=== PATIENT | female | born 1990 ===

== ENCOUNTER 2017-04-18 16:09 | Emergency (ER) | payer MEDICAID ==
[2017-04-18 15:23] VITALS: BMI 19.1
[2017-04-18 16:40] LABS: RBC URINE 9 /hpf (0-3); TRANSITIONAL EPITHIAL < 1 /hpf (0-3); URINE BACTERIA RARE (<OCC); URINE BILIRUBIN NEGATIVE (NEGATIVE); URINE BLOOD 2+ (NEGATIVE); URINE COLOR Yellow (YELLOW); URINE GLUCOSE (UA) NORMAL (Normal); URINE KETONE 1+ mg/dL (NEGATIVE); URINE LEUKOCYTE ESTERASE TRACE Leu/uL (Negative); URINE PROTEIN NEGATIVE (NEGATIVE); WBC URINE 4 /hpf (0-5)
[2017-04-18 21:29] VITALS: PULSE 82; RESP 18; TEMP 98.7; O2SAT 99
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
== END 2017-04-18 17:27 | disposition home or self-care (01) ==
LOC: C.EROB 16:09
DX: O26.892 Other specified pregnancy related conditions, second trimester (principal); R10.9 Unspecified abdominal pain; Z3A.22 22 weeks gestation of pregnancy

== ENCOUNTER 2017-07-10 14:45 | Inpatient (IN) | payer MEDICAID, OTHER ==
[2017-07-10 15:47] LABS: BASO % 0.4 % (0.0-2.0); EOS # 0.1 K/uL (0.0-0.7); HEMOGLOBIN 10.4 g/dL (11.0-16.0); LYMPH # 1.2 K/uL (1.0-4.3); LYMPH % 19.4 % (20.0-40.0); MEAN CELL VOLUME 85.8 fL (81.0-99.0); MEAN CORPUSCULAR HEMOGLOBIN 29.7 pg (27.0-31.0); MEAN CORPUSCULAR HGB CONC 34.7 g/dL (33.0-37.0); MEAN PLATELET VOLUME 9.1 fL (7.2-11.7); MONO # 0.6 K/uL (0.0-0.8); MONO % 10.4 % (0.0-10.0); NEUT # 4.2 K/uL (1.8-7.0); NEUT % 68.8 % (50.0-75.0); RBC 3.5 Mil/uL (3.80-5.20); RED CELL DISTRIBUTION WIDTH 12.7 % (11.5-14.5); WHITE BLOOD COUNT 6.2 K/uL (4.8-10.8)
[2017-07-10 15:55] LABS: PROTHROMBIN TIME 11.1 SECONDS (9.7-12.2)
[2017-07-10 16:09] LABS: ALB/GLOB RATIO 1.1 (1.0-2.1); ALBUMIN 3.4 g/dL (3.5-5.0); ALT/SGPT 23 U/L (9-52); AST/SGOT 30 U/L (14-36); BLOOD UREA NITROGEN 9 mg/dL (7-17); CALCIUM 9.2 mg/dl (8.6-10.4); GFR AFRICAN-AMERICAN > 60; GFR NON-AFRICAN AMERICAN > 60; URIC ACID 3.8 mg/dL (2.2-7.5)
[2017-07-10 16:13] LABS: SQUAMOUS EPITHIAL 14 /hpf (0-5); URINE AMORPHOUS SEDIMENT RARE /ul (<OCC); URINE BACTERIA MOD (<OCC); URINE BILIRUBIN NEGATIVE (NEGATIVE); URINE BLOOD 1+ (NEGATIVE); URINE CLARITY Turbid (Clear); URINE COLOR Yellow (YELLOW); URINE GLUCOSE (UA) NORMAL (Normal); URINE LEUKOCYTE ESTERASE 2+ Leu/uL (Negative); URINE NITRATE NEGATIVE (NEGATIVE); URINE PROTEIN NEGATIVE (NEGATIVE); URINE UROBILINOGEN NORMAL mg/dL (0.2-1.0)
[2017-07-10] MEDS ORDERED: Lactated Ringer's 1,000 ML IV ONE (17:12)
[2017-07-10] MEDS ORDERED: Magnesium Sulfate 4 gm/100 ml 4 GM/100 ML BAG IVPB ONE ×2 (17:57)
[2017-07-10] MEDS: Magnesium Sulfate 20 gm 20 GM/500 ML BAG IV SCH (18:00)
[2017-07-10] MEDS: Lactated Ringer's 1,000 ML IV SCH (18:13)
[2017-07-10] MEDS ORDERED: Magnesium Sulfate 20 gm 20,000 MG/500 ML BAG IV ONE (18:30)
[2017-07-10] MEDS: Betamethasone Soluspan 30 mg/5mL Inj Susp IM SCH (18:34)
[2017-07-10] MEDS ORDERED: AMPicillin 2 GM in Sodium Chloride 100 ML IVPB ONE (18:42)
--- NOTE | 2017-07-10 19:16 | OBADHP ---
Datetime: 07/10/2017 15:39 IP Chief Complaint Other: Elevated BPs Admit Comment, IP Provider: Patient is a 27 year old at 34w5d LILIA 08/16/17 presents to L+D fr om Dr Becerra's office for elevated BPs. Patient states that she has been having a constant headache s teddy last night. This morning she wasnt feeling well and started to become dizzy. She went to the off ice today and BP was found to be 140s/60. Patient states that she ate eggs, cereal with milk this mor celia. Admits to also having blurry vision yesterday. Headache currently is 4/10 on pain scale. She di d not take anything for the headache. Denies fevers/chills, N/V, cp, palpitations, sob, RUQ/epigastri c pain, urinary symptoms. Issues: Denies OB Hx: 1. 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 Also reports B'H Ctx "all last night" pain. Cervical exam: 1-2 cm/30%/-3; mid position, medium consistency - Case D/W Dr. Braxton - IVFs; observe Addendum: 1730 hours - Patient states tightening slightly improved, still present. Cervical exam: 2cm/ 40%/ -3 to -2; more anterior and softer. Dr. Becerra made aware: patient for admission - celestone, magnesium sulphate and antibiotics. All of this was explained to patient - attention being given to advantage of steroid administration; com mon side effect of magnesium sulphate. Patient and FOB expressed an understanding and agree. All conc erns were addressed. Assessment: 27 y.o. , 34w 5d, threatened PTL, UTI, Breech presentation for steroids. Category 1 tracing. Clinically stable. Plan: 1) Admit 2) NPO 3) magnesium sulphate: loand and maintenance 4) Ampicillin 5) Celestone 6) Acosta to gravity 7) T_S 8) Re-examine as indicated - as per Dr. Becerra Abdomen - PN: Normal Lungs - PN: Normal Heart - PN: Normal HEENT - PN: Normal General - PN: Normal FHR - Baseline A Provider: 130 Contraction Comments Provider: occasional Comments, ACOG Physical Exam: VS: 118/69 Gen: AAOx3 Abd: Soft, gravid, no RUQ/epigastric tenderness Ext: No clubbing, cyanosis, edema Vital Signs Provider: Reviewed; Within Normal Limits IP Chief Complaint: Other NICHD Variability Prov Fetus A: Moderate 6-25bpm NICHD Accel Fetus A IP Provider: 15X15 FHR Category Provider Fetus A: Category I NICHD Decel Fetus A IP Provider: None EGA AdmitDate IP: 34.5 IP Adm Impression: , intrauterine IP Admit Plan: Admit to unit; Initiate labor protocol Datetime: 04/18/2017 17:20 Extremities - PN: Normal Pool Provider: Negative Dilatation, Provider: closed Effacement, Provider: thick Station, Provider: high
--- NOTE | 2017-07-10 20:53 | US ---
EXAM: US Biophysical Profile Without Non-Stress Testing CLINICAL HISTORY: 27 years old, female; Signs and symptoms; Other: Threatened ptl , 34wk5d; ; Additional info: Threatened ptl; 34w 5d. TECHNIQUE: Real-time ultrasound of the maternal pelvis for biophysical profile evaluation with image documentation. COMPARISON: There are no prior studies for comparison. FINDINGS: Biophysical profile: Fetus was evaluated for movement, breathing, tone and fluid volume. A score of 2/2 was given for each parameter IMPRESSION: Normal 8/8 biophysical profile EXAM: US Uterus, Limited EXAM DATE/TIME: 07/10/2017 6:43 PM CLINICAL HISTORY: 27 years old, female; Signs and symptoms; Other: Threatened ptl , 34wk5d; ; Additional info: Threatened ptl; 34w 5d. TECHNIQUE: Real-time ultrasound of the maternal uterus (limited) with image documentation. COMPARISON: There are no prior studies for comparison. FINDINGS: Gestation: There is a single living intrauterine gestation in breech presentation. Placenta is anterior. There is no previa. There is a heart rate of 132 beats per minute. Fluid: RUBIN measures 13.23 cm. measurements BPD: 8.44 cm, 34 weeks 0 days HC: 31.17 cm, 34 weeks 6 days AC: 29.69 cm, 33 weeks 5 days FL: 6.67 cm, 34 weeks 2 days Estimated weight is 2330 g By sonographic criteria, gestational age is 34 weeks 2 days Estimated date of delivery is 08/19/17 Cervix measures 2.17 m in length anatomy: There is a four-chamber heart and three-vessel cord. Fluid is seen in the stomach and bladder. Visualized portions of brain and spine appear intact. IMPRESSION: 34 week 2 day single breech fetus, estimated date of delivery 08/19/17
--- NOTE | 2017-07-10 22:03 | OBPN ---
Datetime: 07/10/2017 21:55 IP Progress Plan: Continue present management; Antibiotic therapy; Tocolysis Membranes, Provider: Intact Contraction Comments Provider: irregular FHR - Baseline A Provider: 125 IP Progress Note Comment: Patient received in bed: LDR#1. Reports feeling more "cramps"; pain scale 4/10. (+) AFM Cervical exam: as above. Bedside ultrasound: official report: Breech presentation, anterior placenta; EFW 2330 grams; cervi x 2.17 cm. BPS 8/8 (RUBIN 13.23 cm) Assessment: 27 y.o. P1, 34w 5d, threatened PTL; UTI on magnesium sulphate and ampicillin. Breech p resentation. S/P celestone 1 of 2 doses. No further cervical change. Category 1 tracing. Clinically stable. Plan: 1) Continue present management NICHD Accel Fetus A IP Provider: 15X15 FHR Category Provider Fetus A: Category I NICHD Variability Prov Fetus A: Moderate 6-25bpm Dilatation, Provider: 2 Effacement, Provider: 40 Station, Provider: -3 NICHD Decel Fetus A IP Provider: None Datetime: 07/10/2017 15:39 Vital Signs Provider: Reviewed; Within Normal Limits Datetime: 04/18/2017 17:20 Pool Provider: Negative
[2017-07-11] MEDS: AMPicillin 1 GM in Sodium Chloride 0.9% 100 ML IVPB SCH ×4 (01:03→18:23)
[2017-07-11] MEDS ORDERED: Magnesium Sulfate 20 gm 20,000 MG/500 ML BAG IV ONE (05:37)
[2017-07-11] MEDS: Magnesium Sulfate 20 gm 20 GM/500 ML BAG IV SCH (06:58)
[2017-07-11] MEDS: Lactated Ringer's 1,000 ML IV SCH (07:07)
[2017-07-11] MEDS ORDERED: Calcium Gluconate 4.65 mEq/10 ml Inj IVP PRN (10:25)
[2017-07-11] MEDS ORDERED: Nalbuphine 20 mg/ml Inj (1 ml) IVP ONE (16:43)
[2017-07-11] MEDS ORDERED: Nalbuphine 20 mg/ml Inj (1 ml) ONE (17:25)
[2017-07-11] MEDS: Betamethasone Soluspan 30 mg/5mL Inj Susp IM SCH (17:45)
[2017-07-12] MEDS: AMPicillin 1 GM in Sodium Chloride 0.9% 100 ML IVPB SCH ×2 (00:30→06:41)
--- NOTE | 2017-07-12 07:41 | OBPN ---
Datetime: 07/12/2017 07:40 IP Procedures: Sterile Vag Exam FHR - Baseline A Provider: 120 Vital Signs Provider: Reviewed; Within Normal Limits NICHD Accel Fetus A IP Provider: 15X15 FHR Category Provider Fetus A: Category I NICHD Variability Prov Fetus A: Moderate 6-25bpm Dilatation, Provider: 2 Effacement, Provider: 50 Station, Provider: -2 Datetime: 07/11/2017 09:25 Membranes, Provider: Intact Contraction Comments Provider: occasional IP Progress Note Comment: Patient seen and examined at bedside. Patient is doing well, admits to occ asional cramping. Offers no other complaints. Endorses +FM, denies VB, LOF. Denies headaches, dizzine ss, blurry vision, cp, palpitations, sob, urinary symptoms. VSS CV: RRR Lungs: CTA B/L Abd: Soft, gravid Ext: No clubbing, cyanosis, edema; no calf tenderness A/P: 27 year old at 34w6 in labor -Stable, afebrile -CEFM and TOCO -Continue mag sulfate -Monitor magnesium levels q6h, monitor for magnesium toxicity -Continue antibiotics -Betamethasone at 6pm -Plan discussed with Dr Hernan Zaldivar DO PGY-1 NICHD Decel Fetus A IP Provider: None
--- NOTE | 2017-07-12 07:43 | OBPN ---
Datetime: 07/12/2017 07:40 IP Progress Note Comment: pt was examined at bed side ve /-2 start procardia cont dylan and efm stop antibiotics will revaluate
[2017-07-12] MEDS ORDERED: Sodium Citrate/Citric Acid 15 ml Sol PO ONE (10:09)
[2017-07-12] MEDS ORDERED: cefOXitin IV 2 gm in Saline 2 GM/50 ML BAG IVPB ONE (10:36)
[2017-07-12] MEDS ORDERED: Penicillin G 5 Million Unit Vial IVPB ONE (10:36)
[2017-07-12] MEDS ORDERED: Sodium Citrate/Citric Acid 15 ml Sol ONE (10:36)
[2017-07-12] MEDS ORDERED: Oxytocin 20 units in LR 2,000 ML IV ONE (10:37)
[2017-07-12] MEDS ORDERED: Oxytocin 10 Units/ml Inj ONE (10:38)
[2017-07-12 10:48] LABS: BASO % 0.1 % (0.0-2.0); HEMOGLOBIN 10.5 g/dL (11.0-16.0); LYMPH # 0.9 K/uL (1.0-4.3); LYMPH % 9.9 % (20.0-40.0); MEAN CELL VOLUME 86.9 fL (81.0-99.0); MEAN CORPUSCULAR HEMOGLOBIN 29.7 pg (27.0-31.0); MEAN CORPUSCULAR HGB CONC 34.1 g/dL (33.0-37.0); MONO # 0.7 K/uL (0.0-0.8); NEUT # 7.5 K/uL (1.8-7.0); PLATELET COUNT 224 K/uL (130-400); RBC 3.55 Mil/uL (3.80-5.20); RED CELL DISTRIBUTION WIDTH 12.6 % (11.5-14.5); WHITE BLOOD COUNT 9.1 K/uL (4.8-10.8)
[2017-07-12] MEDS ORDERED: cefOXitin 2 GM in Sodium Chloride 0.9% 100 ML IVPB ONE (11:00)
[2017-07-12 11:03] LABS: ALBUMIN 3.7 g/dL (3.5-5.0); ALT/SGPT 26 U/L (9-52); AST/SGOT 25 U/L (14-36); BLOOD UREA NITROGEN 7 mg/dL (7-17); CALCIUM 8.8 mg/dl (8.6-10.4); GFR AFRICAN-AMERICAN > 60; GFR NON-AFRICAN AMERICAN > 60
[2017-07-12 11:23] LABS: LYMPHOCYTE 8 % (20-40); MONOCYTE 5 % (0-10); NEUTROPHIL 87 % (50-75); TOTAL CELLS COUNTED 100
[2017-07-12 11:24] LABS: PLATELET ESTIMATE NORMAL (NORMAL)
[2017-07-12 11:31] LABS: HEPATITIS B SURFACE AG Negative (NEGATIVE)
--- NOTE | 2017-07-12 11:45 | OBPN ---
Datetime: 07/11/2017 09:25 Vital Signs Provider: Reviewed; Within Normal Limits Datetime: 07/11/2017 08:20 IP Progress Impression: labor IP Progress Plan: Continue present management; Tocolysis IP Progress Note Comment: Pt was seen at her bedside on Magnesium sulfate for tocolysis and to allow for completion of betamethazone. Pt reports being comfortable with occasional pelvic cramps. Plan: Continue with current management Dr Becerra to be called for further directions upon completion of betamethazone at 6pm today.
[2017-07-12] MEDS ORDERED: Morphine 1 mg/ml preservative-free Inj(Duramorph) ONE (12:10)
[2017-07-12] MEDS ORDERED: ePHEDrine 50 mg/ml Inj ONE ×2 (12:10→12:52)
--- NOTE | 2017-07-12 12:20 | OBADHP ---
Datetime: 07/12/2017 10:13 FHR - Baseline A Provider: 140 Amniotic Fluid Color, Provider: Bloody Membranes, Provider: Ruptured Contraction Comments Provider: q2-3min Pool Provider: Positive Vital Signs Provider: Reviewed; Within Normal Limits NICHD Variability Prov Fetus A: Moderate 6-25bpm NICHD Accel Fetus A IP Provider: 15X15 FHR Category Provider Fetus A: Category I NICHD Decel Fetus A IP Provider: None Dilatation, Provider: 3 Effacement, Provider: 70 Station, Provider: -2 Datetime: 07/10/2017 15:39 Admit Comment, IP Provider: Patient is a 27 year old at 34w5d LILIA 08/16/17 presents to L+D fr om Dr Becerra's office for elevated BPs. Patient states that she has been having a constant headache s teddy last night. This morning she wasnt feeling well and started to become dizzy. She went to the off ice today and BP was found to be 140s/60. Patient states that she ate eggs, cereal with milk this mor celia. Admits to also having blurry vision yesterday. Headache currently is 4/10 on pain scale. She di d not take anything for the headache. Denies fevers/chills, N/V, cp, palpitations, sob, RUQ/epigastri c pain, urinary symptoms. Issues: Denies OB Hx: 1. 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 Also reports B'H Ctx "all last night" pain. Cervical exam: 1-2 cm/30%/-3; mid position, medium consistency - Case D/W Dr. Braxton - IVFs; observe Addendum: 1730 hours - Patient states tightening slightly improved, still present. Cervical exam: 2cm/ 40%/ -3 to -2; more anterior and softer. Dr. Becerra made aware: patient for admission - celestone, magnesium sulphate and antibiotics. All of this was explained to patient - attention being given to advantage of steroid administration; com mon side effect of magnesium sulphate. Patient and FOB expressed an understanding and agree. All conc erns were addressed. Assessment: 27 y.o. , 34w 5d, threatened PTL, UTI, Breech presentation for steroids. Category 1 tracing. Clinically stable. Plan: 1) Admit 2) NPO 3) magnesium sulphate: loand and maintenance 4) Ampicillin 5) Celestone 6) Acosta to gravity 7) T_S 8) Re-examine as indicated - as per Dr. Becerra agrees with above EGA AdmitDate IP: 34.5
--- NOTE | 2017-07-12 12:20 | OBPN ---
Datetime: 07/12/2017 10:13 IP Progress Impression: Rupture of membranes IP Progress Plan: Deliver- Section Pool Provider: Positive Membranes, Provider: Ruptured Amniotic Fluid Color, Provider: Bloody Contraction Comments Provider: q2-3min FHR - Baseline A Provider: 140 IP Progress Note Comment: Patient seen and examined at bedside. Patient is comfortable, complaining of leaking fluid. Patient was examined and found to having pooling of bloody fluid. Bedside sonogram done, breech presentation confirmed. VSS SVE: /-2 SSE: +pooling Membranes: Grossly ruptured A/P: 27 year old at 35w0d presented with labor, now grossly ruptured -CEFM and TOCO -Patient consented for -Diet: NPO -Labs: CBC, CMP, T+S, RPR, HIV -Lactated ringers 125cc/hr -Mefoxitin 2gm, Pen G 5MU, Bictra, pepcid preoperatively -Plan discussed with Dr Hernan Zaldivar DO PGY-1 agrees with above Vital Signs Provider: Reviewed; Within Normal Limits NICHD Accel Fetus A IP Provider: 15X15 FHR Category Provider Fetus A: Category I NICHD Variability Prov Fetus A: Moderate 6-25bpm Dilatation, Provider: 3 Effacement, Provider: 70 Station, Provider: -2 NICHD Decel Fetus A IP Provider: None
[2017-07-12] MEDS ORDERED: Lactated Ringer's 1,000 ML IV SCH (12:45)
[2017-07-12] MEDS ORDERED: Tdap Vaccine 0.5 ml Vial (10-64 yrs) IM ONE (12:59)
--- NOTE | 2017-07-12 13:12 | OBDS ---
DELIVERY PERSONNEL Delivery Doctor: Demetrius Becerra MD Scrub Nurse: Jenelle Moreno Shrimp Cleaner: Rose Saxena RN Anesthesiologist: MATERNAL INFORMATION Delivery Anesthesia: Spinal Medications in Delivery: Pitocin 20 units IV in 1000 LR Estimated Blood Loss (ml): 700 Placenta Cultured: Yes Maternal Complications: None RN Comments: Liveborn Baby Girl. 9-9 Provider Comments: DR MARIEL KELLY baby deliverd in [facility]. cord arround neck and body. apgat 8/9 end clean cord gas and cod blood send no com LABOR SUMMARY EDC: 08/16/2017 00:00 No. Babies in Womb: 1 Attempted: No Labor Anesthesia: None LABOR INFORMATION Reason for Induction: Not Applicable Oxytocin: N/A Group B Beta Strep: Done, Result Unknown Antibiotics # of Doses: 3+ Antibiotics Time of Last Dose: Pen G 5 MU IV @ 1053 and MEfoxin 2gm IV 1203 Steroids Given: Full Course Reason Steroids Not Administered: Maternal Indication MEMBRANES Membranes Rupture Method: Spontaneous Rupture of Membranes: 07/12/2017 10:06 Length of Rupture (hrs): 2.43 Amniotic Fluid Color: Bloody Amniotic Fluid Amount: Small Amniotic Fluid Odor: Normal STAGES OF LABOR Stage 3 hrs: 0 Stage 3 min: 2 CSECTION DELIVERY Primary Indication: Other Other Primary Indication: SROM and Breech CSection Urgency: Non Elective CSection Incidence: Primary Labor: Labor Elective: Nonelective CSection Incision: Lower Uterine Transverse BABY A INFORMATION Delivery Date/Time: 07/12/2017 12:32 Method of Delivery: Born in Route : No : N/A Forceps: N/A Vacuum Extraction: N/A Shoulder Dystocia : No SHOULDER DYSTOCIA BABY A Delivery Date/Time: 07/12/2017 12:32 PRESENTATION/POSITION BABY A Presentation: Breech Cephalic Presentation: N/A Breech Presentation: Goyo PLACENTA INFORMATION BABY A Placenta Delivery Time : 07/12/2017 12:34 Placenta Method of Delivery: Manual Removal Placenta Status: Delivered SCORES BABY A Heart Rate 1 min: >100 bpm Resp Effort 1 min: Slow, Irregular Reflex Irritability 1 min: Cough or Sneeze or Pulls Away Muscle Tone 1 min: Active Motion Color 1 min: Body Roper, Extremities Blue Resuscitation Effort 1 min: N/A SCORE 1 MIN: 8 Heart Rate 5 min: >100 bpm Resp Effort 5 min: Good Cry Reflex Irritability 5 min: Cough or Sneeze or Pulls Away Muscle Tone 5 min: Active Motion Color 5 min: Body Roper, Extremities Blue Resuscitation Effort 5 min: N/A SCORE 5 MIN: 9 INFANT INFORMATION BABY A Gestational Age at Delivery: 35.0 Gestational Status: Outcome : Liveborn Infant Condition : Stable Infant Sex: Female IDENTIFICATION/MEDS BABY A ID Band Number: [id number] ID Band Location: Left Leg; Left Arm Sensor Applied: Yes Sensor Number: [id number] Sensor Location : Cord Clamp Vitamin K Given : Not Given Erythromycin Given: Not Given WEIGHT/LENGTH BABY A Birthweight (gms): 2235 Weight (lb): 4 Weight (oz): 15 Length Inches: 16.75 Length cms: 42.5 CORD INFORMATION BABY A No. Cord Vessels: 3 Nuchal Cord : Around Neck x1, Tight Nuchal Cord Other: nuchal cord around the body Cord Blood Taken: Yes Suction: Mouth; Nose ASSESSMENT BABY A Infant Complications: None Physical Findings at Delivery: Within Normal Limits Respirations: Appears Normal Metal Model Builder/ALS Called : Yes Infant Care By: Transferred To: [facility]
[2017-07-12] MEDS ORDERED: Dexamethasone 4 mg/1 ml IVP ONE (13:30)
--- NOTE | 2017-07-12 13:43 | PCM.SURG1 ---
Surgeon's Initial Post Op Note - Surgeon's Notes Surgeon: dr matthew private Thoracic Medicine Specialist: dr lorenzana Type of Anesthesia: Spinal Anesthesia Administered By: dr wen Pre-Operative Diagnosis: 27 at 35weeks/pprom/breech Operative Findings: see the op report Post-Operative Diagnosis: same esme breast Operation Performed: primary cesaren section Specimen/Specimens Removed: cord blood. cord gas. placente Estimated Blood Loss: EBL {In ML}: 800 Blood Products Given: N/A Drains Used: No Drains Post-Op Condition: Good Date of Surgery/Procedure: 07/12/17 Time of Surgery/Procedure: 14:30
[2017-07-12] MEDS: Simethicone 80 mg Chewtab PO SCH ×2 (18:26→22:00)
[2017-07-12] MEDS: Oxycodone/Acetaminophen 5/325 mg Tab PO PRN (20:20)
[2017-07-13] MEDS: Oxycodone/Acetaminophen 5/325 mg Tab PO PRN ×6 (02:21→20:53)
--- NOTE | 2017-07-13 06:43 | OBPPN ---
Datetime: 07/13/2017 06:39 PP Pain Prov: Within normal limits PP Nausea Prov: Denies PP Flatus Prov: No PP Breasts Prov: Normal PP Abdomen/Uterus Prov: Normal PP Extremities Prov: Normal PP C/S Incision Prov: Normal PP Comments Phys Exam Prov: fudus below u,mblicus ext no chanda,no calf ten dresing clean and dry PP Impression Prov: Normal progression PP Plan Prov: Continue present management PP Progress Note Prov: pt was seen at bed side, pain undrv control,no n/v, toleratng liquid eit,wait ing to void,mi lochia pod#1 s/p c/s cbc advance deit cot post op care cont pain management encourage a,mbulation Vital Signs Provider PP: Reviewed; Within Normal Limits
[2017-07-13 08:50] LABS: BASO % 0.2 % (0.0-2.0); EOS % 0.1 % (0.0-4.0); LYMPH # 1.2 K/uL (1.0-4.3); LYMPH % 12.6 % (20.0-40.0); MEAN CELL VOLUME 86.3 fL (81.0-99.0); MEAN CORPUSCULAR HEMOGLOBIN 29.7 pg (27.0-31.0); MEAN CORPUSCULAR HGB CONC 34.4 g/dL (33.0-37.0); MEAN PLATELET VOLUME 8.9 fL (7.2-11.7); MONO % 9.8 % (0.0-10.0); NEUT # 7.6 K/uL (1.8-7.0); NEUT % 77.3 % (50.0-75.0); RBC 2.84 Mil/uL (3.80-5.20); RED CELL DISTRIBUTION WIDTH 12.4 % (11.5-14.5); WHITE BLOOD COUNT 9.8 K/uL (4.8-10.8)
[2017-07-13 09:03] LABS: HEMOGLOBIN 8.4 g/dL (11.0-16.0)
[2017-07-13] MEDS: Simethicone 80 mg Chewtab PO SCH ×4 (09:10→21:48)
[2017-07-13 09:23] VITALS: RESP 18
[2017-07-13] MEDS ORDERED: Bisacodyl 5mg EC Tab PO ONE (12:40)
[2017-07-14] MEDS: Oxycodone/Acetaminophen 5/325 mg Tab PO PRN ×2 (01:40→05:44)
[2017-07-14 08:32] VITALS: PULSE 85; TEMP 98.3; O2SAT 98
[2017-07-14] MEDS: Simethicone 80 mg Chewtab PO SCH (09:15)
[2017-07-14 17:12] VITALS: BP 106/50
--- NOTE | 2017-07-15 19:22 | OP ---
PREOPERATIVE DIAGNOSIS: A 27-year-old 2, para 1 at 35 weeks with premature rupture of membrane breech. POSTOPERATIVE DIAGNOSIS: A 27-year-old 2, para 1 at 35 weeks with premature rupture of membrane breech. SURGEON: Cecilio Becerra MD MEDICAL FEE CLERK: Rush Nolan MD who was present throughout the surgery for retraction, exposing, and pushing at the time of the delivery. ANESTHESIA: Spinal. ANESTHESIOLOGIST: . COMPLICATIONS: None. ESTIMATED BLOOD LOSS: 800. DESCRIPTION OF PROCEDURE: After informed consent was obtained, the patient was brought to the operating room, placed on the table where spinal anesthesia was given. Once the anesthesia was given, the patient was prepped and draped in normal sterile fashion. At the site of previous skin incision, an incision was made with a knife, the subcutaneous cut with a Bovie. The fascia was then excised on both the sides using curved Vann scissors. The fascia was from the site of the umbilicus and then at the site of the pubic bone. Rectus muscle was . Peritoneum was incised and we went into the abdominal cavity, bladder flap was created. Lower uterine segment incision was made with a knife, it was extended using Bovie and curved Vann scissors. Baby was delivered in a esme breech position, cord was around the baby's neck, it was reduced. Cord was clamped again. Baby was handed to the awaiting sanding machine operator. Cord gas was taken and cord blood was taken. Placenta was delivered manually and sent to the Pathology. Uterus was exteriorized. Uterus was very small for a 38-week size uterus. All clots were taken out and cleaned. The uterine incision was closed using #1 Vicryl in running interlocking fashion, second layer was closed with the same stitch. Cul-de-sac was cleared of all the clots and debris. Uterus was returned back to abdominal cavity. Gutters were cleared of all the clots and debris. Peritoneum was closed using 2-0 Vicryl in running interlocking fashion. The muscle was closed using 2-0 Vicryl in running interlocking fashion. Fascia was closed using number 1 Vicryl in running interlocking fashion. Skin was closed with 3-0 Monocryl on straight needle. The patient tolerated the procedure well. Lap, sponge and instrument counts were correct x2. Cecilio Becerra MD [facility] # [id number]
== END 2017-07-14 13:12 | disposition home or self-care (01) | DRG 370 ==
LOC: C.EROB 14:45 → C.4D 17:34 → C.4M 07-12 17:40
PROVIDERS: ADMIT Obstetrics & Gynecology; ATTEND Obstetrics & Gynecology
PROC: 10D00Z1 Extraction of Products of Conception, Low, Open Approach (ICD-10-PCS; principal; 2017-07-12)
DX: O32.1XX0 Maternal care for breech presentation, not applicable or unspecified (principal); O75.3 Other infection during labor; N39.0 Urinary tract infection, site not specified; O42.013 Preterm premature rupture of membranes, onset of labor within 24 hours of rupture, third trimester; O69.1XX0 Labor and delivery complicated by cord around neck, with compression, not applicable or unspecified; O60.14X0 Preterm labor third trimester with preterm delivery third trimester, not applicable or unspecified; Z3A.35 35 weeks gestation of pregnancy; Z37.0 Single live birth